=== PATIENT | male | born 1945 | race African-American/Black ===

== ENCOUNTER 2018-06-21 10:54 | Emergency (ER) | payer BC, MEDICAID ==
[~2018-06-21] VITALS: Ht 172.7 cm; Wt 64.0 kg
[2018-06-21 16:55] VITALS: BP 142/64
== END 2018-06-21 16:56 | disposition home or self-care (01) ==
LOC: ER 13:14
DX: R63.4 Abnormal weight loss (principal); F17.200 Nicotine dependence, unspecified, uncomplicated; Z71.6 Tobacco abuse counseling
CPT/HCPCS: 99283; 99406